=== PATIENT | male | born 1950 | race Caucasian/White ===

== ENCOUNTER 2016-11-26 14:32 | Emergency (ER) | payer MEDICARE, OTHER ==
[~2016-11-26] VITALS: Ht 175.3 cm; Wt 92.0 kg
[2016-11-26 14:33] VITALS: BP 181/105; PULSE 79; RESP 18; TEMP 98.5; O2SAT 100
--- NOTE | 2016-11-26 15:43 | PD ---
HPI Chief Complaint: Edema Time Seen by Provider: 15:43 Travel History International Travel<30 days: No Contact w/Intl Traveler<30days: No Traveled to known affect area: No History of Present Illness HPI 65-year-old male with history of hypertension and one isolated episode of A. fib , presents to emergency department for evaluation bilateral lower extremity swelling worsening over the last 3 weeks. Patient states that 2 weeks ago when he began he went to [facility] and was told his kidneys were not functioning well and he needed follow-up with a primary care provider. He states the swelling in his lower extremities has only worsened since then. He has developed shortness of breath with prolonged ambulation. States he is unable to sleep flat. Denies any recent illnesses, fever, chills. No chest pain or tightness. He has no other symptoms to report at this time. [facility] Past Medical History Cardiovascular Problems: Yes Social History Tobacco Use: Yes Review of Systems Except as stated in HPI: all other systems reviewed are Neg Physical Exam Narrative GENERAL: Well-nourished male patient, ambulatory and in no acute distress SKIN: Warm and dry. HEAD: Atraumatic. Normocephalic. EYES: Pupils equal and round. No scleral icterus. No injection or drainage. ENT: No nasal bleeding or discharge. Mucous membranes pink and moist. NECK: Trachea midline. No JVD. CARDIOVASCULAR: Regular rate and rhythm. RESPIRATORY: No accessory muscle use. Diminished to auscultation. Breath sounds equal bilaterally. GASTROINTESTINAL: Abdomen soft, non-tender, nondistended. Hepatic and splenic margins not palpable. MUSCULOSKELETAL: No obvious deformities. No clubbing. No cyanosis. 2+ bilateral lower extremity edema. Distal pulses are palpable. NEUROLOGICAL: Awake and alert. No obvious cranial nerve deficits. Motor grossly within normal limits. Normal speech. PSYCHIATRIC: Appropriate mood and affect; insight and judgment normal. Data Data Last Documented VS Vital Signs Date Time Temp Pulse Resp B/P Pulse Ox O2 Delivery O2 Flow Rate FiO2 11/26/16 14:33 98.5 79 18 181/105 100 Room Air Orders Electrocardiogram (11/26/16 15:38) B-Type Natriuretic Peptide (11/26/16 15:38) Ckmb (Isoenzyme) Profile (11/26/16 15:38) Complete Blood Count With Diff (11/26/16 15:38) Comprehensive Metabolic Panel (11/26/16 15:38) Magnesium (Mg) (11/26/16 15:38) Prothrombin Time / Inr (Pt) (11/26/16 15:38) Act Partial Throm Time (Ptt) (11/26/16 15:38) Troponin I (11/26/16 15:38) Chest, Single Ap (11/26/16 15:38) Labs Laboratory Tests Test 11/26/16 15:45 White Blood Count 4.0 TH/MM3 Red Blood Count 3.00 MIL/MM3 Hemoglobin 8.8 GM/DL Hematocrit 25.7 % Mean Corpuscular Volume 85.8 FL Mean Corpuscular Hemoglobin 29.4 PG Mean Corpuscular Hemoglobin 34.2 % Concent Red Cell Distribution Width 14.5 % Platelet Count 301 TH/MM3 Mean Platelet Volume 7.1 FL Neutrophils (%) (Auto) 60.8 % Lymphocytes (%) (Auto) 24.8 % Monocytes (%) (Auto) 10.7 % Eosinophils (%) (Auto) 2.6 % Basophils (%) (Auto) 1.1 % Neutrophils # (Auto) 2.4 TH/MM3 Lymphocytes # (Auto) 1.0 TH/MM3 Monocytes # (Auto) 0.4 TH/MM3 Eosinophils # (Auto) 0.1 TH/MM3 Basophils # (Auto) 0.0 TH/MM3 CBC Comment AUTO DIFF Differential Comment AUTO DIFF CONFIRMED Prothrombin Time 11.2 SEC Prothromb Time International 1.0 RATIO Ratio Activated Partial 24.5 SEC Thromboplast Time Sodium Level 138 MEQ/L Potassium Level 4.3 MEQ/L Chloride Level 104 MEQ/L Carbon Dioxide Level 24.0 MEQ/L Anion Gap 10 MEQ/L Blood Urea Nitrogen 16 MG/DL Creatinine 1.61 MG/DL Estimat Glomerular Filtration 44 ML/MIN Rate Random Glucose 80 MG/DL Calcium Level 8.4 MG/DL Magnesium Level 1.5 MG/DL Total Bilirubin 0.6 MG/DL Aspartate Amino Transf 10 U/L (AST/SGOT) Alanine Aminotransferase 11 U/L (ALT/SGPT) Alkaline Phosphatase 93 U/L Total Creatine Kinase 52 U/L Troponin I LESS THAN 0.02 NG/ML B-Type Natriuretic Peptide 427 PG/ML Total Protein 6.6 GM/DL Albumin 3.2 GM/DL MDM Medical Decision Making Medical Screen Exam Complete: Yes Emergency Medical Condition: Yes Medical Record Reviewed: Yes Differential Diagnosis CHF versus dependent edema versus PVD versus DVT Narrative Course 65-year-old male presents to emergency department for evaluation. Workup was initiated in triage. Once a medical bed because available, patient will be transferred and care assumed by that provider. 1825 patient is not in the waiting room when a medical bed available,. Multiple intensive been made to locate the patient. He was aware prior to being setback in the waiting area but this was the initiation of his workup and it would not be complete. If he chose to leave he understood that this would be AGAINST MEDICAL ADVICE due to an incomplete workup at this time. Diagnosis Primary Impression: Lower extremity edema Qualified Code: R60.0 - Bilateral edema of lower extremity Additional Impressions: Shortness of breath Left against medical advice Disposition: 07 AGAINST MEDICAL ADVICE Condition: Stable rBitany Pham Nov 26, 2016 15:43
[2016-11-26 16:00] LABS: AUTOMATED NEUTROPHIL # 2.4 TH/MM3 (1.8-7.7); BASOPHIL % 1.1 % (0.0-2.0); EOSINOPHIL # 0.1 TH/MM3 (0-0.4); EOSINOPHIL % 2.6 % (0.0-4.0); HEMATOCRIT 25.7 % (39.0-51.0); LYMPH % 24.8 % (9.0-44.0); MEAN CELL VOLUME 85.8 FL (80.0-100.0); MEAN CORPUSCULAR HEMOGLOBIN 29.4 PG (27.0-34.0); MEAN CORPUSCULAR HGB CONC 34.2 % (32.0-36.0); MONO % 10.7 % (0.0-8.0); NEUT % 60.8 % (16.0-70.0); PLATELET COUNT 301 TH/MM3 (150-450); RED CELL DISTRIBUTION WIDTH 14.5 % (11.6-17.2)
[2016-11-26 16:05] LABS: HEMO FLAGS AUTO DIFF
[2016-11-26 16:07] LABS: APTT (PATIENT) 24.5 SEC (24.3-30.1); PROTHROMBIN TIME - PATIENT 11.2 SEC (9.8-11.6)
--- NOTE | 2016-11-26 16:18 | RADRPT ---
EXAM DATE/TIME: 11/26/2016 16:00 [facility] COMPARISON: No previous studies available for comparison. INDICATIONS : Short of breath, lower extremity edema. MEDICAL HISTORY : None. SURGICAL HISTORY : None. ENCOUNTER: Initial ACUITY: 3 days PAIN SCORE: 0/10 LOCATION: chest FINDINGS: A single view of the chest demonstrates the lungs to be symmetrically aerated without evidence of mas s, infiltrate or effusion. The cardiomediastinal contours are unremarkable. Osseous structures are intact. CONCLUSION: No acute disease. Daron Yu MD FACR on November 26, 2016 at 16:16 Board Certified Radiologist. This report was verified electronically.
[2016-11-26 16:25] LABS: ANION GAP 10 MEQ/L (5-15); BLOOD UREA NITROGEN 16 MG/DL (7-18); CHLORIDE 104 MEQ/L (98-107); GLOMERULAR FILTRATION RATE 44 ML/MIN (>89); MAGNESIUM 1.5 MG/DL (1.5-2.5); POTASSIUM 4.3 MEQ/L (3.5-5.1); SODIUM (NA) 138 MEQ/L (136-145)
[2016-11-26 16:38] LABS: ALKALINE PHOSPHATASE 93 U/L (45-117); ALT (GPT) 11 U/L (12-78); AST (GOT) 10 U/L (15-37); TOTAL BILIRUBIN ADULT 0.6 MG/DL (0.2-1.0)
[2016-11-26 16:49] LABS: CREATINE KINASE 52 U/L (39-308)
[2016-11-26 17:17] LABS: SCAN/DIFF AUTO DIFF CONFIRMED
--- NOTE | 2016-11-27 23:58 | EKG ---
Date Performed: 11/26/2016 Time Performed: 15:52:21 PTAGE: 65 years EKG: Sinus rhythm NORMAL ECG NO PREVIOUS TRACING DOCTOR: Austin Smith Interpretating Date/Time 11/27/2016 23:57:09
== END 2016-11-26 18:25 | disposition left against medical advice (07) ==
LOC: NETRI 14:32
DX: R60.0 Localized edema (principal); R06.02 Shortness of breath
CPT/HCPCS: 71010; 80053; 82550; 83735; 83880; 84484; 85025; 85610; 85730; 93005

== ENCOUNTER 2016-12-24 11:32 | Emergency (ER) | payer MEDICARE, OTHER ==
[~2016-12-24] VITALS: Ht 175.3 cm; Wt 93.0 kg
[2016-12-24 11:33] VITALS: BP 154/83; PULSE 91; RESP 20; TEMP 98.9; O2SAT 100
--- NOTE | 2016-12-24 11:47 | PD ---
HPI Chief Complaint: LE EDEMA Time Seen by Provider: 11:47 Travel History International Travel<30 days: No Contact w/Intl Traveler<30days: No Traveled to known affect area: No History of Present Illness HPI 66-year-old male with history of hypertension presents to the emergency department for evaluation of persistent bilateral lower extremity edema. Patient was seen and evaluated on November 26 for this. He has not followed up with a primary care provider due to not having one. Patient states he has been elevating his lower extremities with no improvement of his symptoms. Denies any chest pain or tightness. No difficulty breathing. Patient states that when his lower extremities are like this they are painful, constant, throbbing. Denies any injury. Denies any history of DVT. No other symptoms to report this time. PFSH Past Medical History Cardiovascular Problems: Yes Social History Tobacco Use: Yes Allergies-Medications (Allergen,Severity, Reaction): Coded Allergies: Tramadol (Verified Allergy, Severe, Rash, 12/24/16) Reported Meds & Prescriptions Reported Meds & Active Scripts Active Effer-K (Potassium Bicarbonate-Citric Acid) 10 Meq Tab 1 Tab PO DAILY 5 Days Hydrochlorothiazide 12.5 Mg Tab 12.5 Mg PO BID 5 Days Reported Lisinopril 40 Mg Tab 40 Mg PO HS Review of Systems Except as stated in HPI: all other systems reviewed are Neg Physical Exam Narrative GENERAL: Well-nourished male patient, in no acute distress SKIN: Warm and dry. HEAD: Atraumatic. Normocephalic. EYES: Pupils equal and round. No scleral icterus. No injection or drainage. ENT: No nasal bleeding or discharge. Mucous membranes pink and moist. NECK: Trachea midline. No JVD. CARDIOVASCULAR: Regular rate and rhythm. No murmur appreciated. RESPIRATORY: No accessory muscle use. Clear to auscultation. Breath sounds equal bilaterally. GASTROINTESTINAL: Abdomen soft, non-tender, nondistended. Hepatic and splenic margins not palpable. MUSCULOSKELETAL: No obvious deformities. No clubbing. No cyanosis. 2+ bilateral lower extremity edema distal to the knees. Distal pulses are palpable. Cap refill is within normal limits. NEUROLOGICAL: Awake and alert. No obvious cranial nerve deficits. Motor grossly within normal limits. Normal speech. PSYCHIATRIC: Appropriate mood and affect; insight and judgment normal. Data Data Last Documented VS Vital Signs Date Time Temp Pulse Resp B/P Pulse Ox O2 Delivery O2 Flow Rate FiO2 12/24/16 12:20 98 Room Air 12/24/16 12:20 16 12/24/16 11:33 98.9 91 154/83 Orders Complete Blood Count With Diff (12/24/16 11:53) Comprehensive Metabolic Panel (12/24/16 11:53) B-Type Natriuretic Peptide (12/24/16 11:53) Act Partial Throm Time (Ptt) (12/24/16 11:53) Prothrombin Time / Inr (Pt) (12/24/16 11:53) Urinalysis - C+S If Indicated (12/24/16 11:53) Iv Access Insert/Monitor (12/24/16 11:53) Ecg Monitoring (12/24/16 11:53) Oximetry (12/24/16 11:53) Oxygen Administration (12/24/16 11:53) Chest, Single Ap (12/24/16 11:53) Sodium Chloride 0.9% Flush (Ns Flush) (12/24/16 12:00) Us Leg Venous Doppler Bilat (12/24/16 ) Thyroid Stimulating Hormone (12/24/16 11:54) Labs Laboratory Tests Test 12/24/16 12/24/16 12:17 13:41 White Blood Count 5.3 TH/MM3 Red Blood Count 3.14 MIL/MM3 Hemoglobin 9.0 GM/DL Hematocrit 26.7 % Mean Corpuscular Volume 85.0 FL Mean Corpuscular Hemoglobin 28.8 PG Mean Corpuscular Hemoglobin 33.9 % Concent Red Cell Distribution Width 15.3 % Platelet Count 265 TH/MM3 Mean Platelet Volume 7.7 FL Neutrophils (%) (Auto) 67.1 % Lymphocytes (%) (Auto) 19.7 % Monocytes (%) (Auto) 10.9 % Eosinophils (%) (Auto) 1.4 % Basophils (%) (Auto) 0.9 % Neutrophils # (Auto) 3.5 TH/MM3 Lymphocytes # (Auto) 1.0 TH/MM3 Monocytes # (Auto) 0.6 TH/MM3 Eosinophils # (Auto) 0.1 TH/MM3 Basophils # (Auto) 0.0 TH/MM3 CBC Comment DIFF FINAL Differential Comment Prothrombin Time 11.0 SEC Prothromb Time International 1.0 RATIO Ratio Activated Partial 26.2 SEC Thromboplast Time Sodium Level 132 MEQ/L Potassium Level 3.9 MEQ/L Chloride Level 99 MEQ/L Carbon Dioxide Level 24.6 MEQ/L Anion Gap 8 MEQ/L Blood Urea Nitrogen 12 MG/DL Creatinine 1.59 MG/DL Estimat Glomerular Filtration 44 ML/MIN Rate Random Glucose 75 MG/DL Calcium Level 8.7 MG/DL Total Bilirubin 0.5 MG/DL Aspartate Amino Transf 7 U/L (AST/SGOT) Alanine Aminotransferase 10 U/L (ALT/SGPT) Alkaline Phosphatase 77 U/L B-Type Natriuretic Peptide 108 PG/ML Total Protein 6.4 GM/DL Albumin 3.2 GM/DL Thyroid Stimulating Hormone 1.170 uIU/ML 3rd Gen Urine Color YELLOW Urine Turbidity CLEAR Urine pH 5.0 Urine Specific [place] 1.016 Urine Protein 30 mg/dL Urine Glucose (UA) NEG mg/dL Urine Ketones NEG mg/dL Urine Occult Blood MOD Urine Nitrite NEG Urine Bilirubin NEG Urine Urobilinogen LESS THAN 2.0 MG/DL Urine Leukocyte Esterase SMALL Urine RBC 6 /hpf Urine WBC 6 /hpf Urine Hyaline Casts 9 /lpf Urine Mucus FEW /lpf Microscopic Urinalysis Comment CULT NOT INDICATED MDM Medical Decision Making Medical Screen Exam Complete: Yes Emergency Medical Condition: Yes Medical Record Reviewed: Yes Differential Diagnosis Dependent edema versus CHF versus DVT versus electrolyte abnormality versus renal dysfunction Narrative Course 66-year-old male presents to emergency department for evaluation of lower extremity edema. Patient appears without distress. He does have bilateral lower extremity edema. Lung sounds are clear. CBC and CMP are without acute concern in consistent when compared to previous lab work. BNP is 108, improved from previous. TSH is 1.170. Urinalysis is with 30 protein, moderate occult blood, small leukocyte esterase, 6 RBC, 6 WBC, few mucus. This is discussed with the patient and he is encouraged to have repeat UA outpatient done with a primary care provider. I have discussed in depth the importance of establishment of care with primary care provider. I have discussed the patient and findings with my attending physician Dr. Loaiza who recommends diuretics for 5 days. Patient is prescribed this. He agrees to return immediately with any acute worsening of symptoms. Diagnosis Primary Impression: Lower extremity edema Qualified Code: R60.0 - Bilateral edema of lower extremity Referrals: Primary Care Physician Patient Instructions: General Instructions, Leg Edema (ED) Additional Instructions: It is important that you establish care with a primary care provider Elevate your lower extremities to reduce swelling Reduce sodium/salt intake in your diet Return immediately to the emergency department with any acute worsening of symptoms Med/Other Pt SpecificInfo: Prescription(s) given Scripts Potassium Bicarbonate-Citric Acid (Effer-K)10 Meq Tab1 Tab PO DAILY 5 Days Prov:Britany Pham 12/24/16 Hydrochlorothiazide 12.5 Mg Tab12.5 Mg PO BID 5 Days Ref 0 Prov:Britany Pham 12/24/16 Disposition: 01 DISCHARGE HOME Condition: Stable Britany Pham Dec 24, 2016 11:47
[2016-12-24] MEDS ORDERED: LISI40TA PO (11:49)
[2016-12-24] MEDS ORDERED: SODIUM CHLORIDE 0.9% FLUSH 10 ML FLUSH IVF PRN (12:00)
[2016-12-24 12:20] VITALS: RESP 16; O2SAT 98
[2016-12-24 12:30] LABS: AUTOMATED NEUTROPHIL # 3.5 TH/MM3 (1.8-7.7); BASOPHIL % 0.9 % (0.0-2.0); EOSINOPHIL # 0.1 TH/MM3 (0-0.4); EOSINOPHIL % 1.4 % (0.0-4.0); HEMATOCRIT 26.7 % (39.0-51.0); HEMO FLAGS DIFF FINAL; LYMPH % 19.7 % (9.0-44.0); MEAN CORPUSCULAR HEMOGLOBIN 28.8 PG (27.0-34.0); MEAN CORPUSCULAR HGB CONC 33.9 % (32.0-36.0); MONO % 10.9 % (0.0-8.0); NEUT % 67.1 % (16.0-70.0); PLATELET COUNT 265 TH/MM3 (150-450); RED BLOOD COUNT 3.14 MIL/MM3 (4.50-5.90); RED CELL DISTRIBUTION WIDTH 15.3 % (11.6-17.2); WHITE BLOOD COUNT 5.3 TH/MM3 (4.0-11.0)
[2016-12-24 12:37] LABS: APTT (PATIENT) 26.2 SEC (24.3-30.1)
[2016-12-24 13:16] LABS: ALT (GPT) 10 U/L (12-78); ANION GAP 8 MEQ/L (5-15); AST (GOT) 7 U/L (15-37); BICARBONATE 24.6 MEQ/L (21.0-32.0); BLOOD UREA NITROGEN 12 MG/DL (7-18); CHLORIDE 99 MEQ/L (98-107); GLOMERULAR FILTRATION RATE 44 ML/MIN (>89); POTASSIUM 3.9 MEQ/L (3.5-5.1); SODIUM (NA) 132 MEQ/L (136-145)
[2016-12-24 13:18] LABS: ALKALINE PHOSPHATASE 77 U/L (45-117); TOTAL BILIRUBIN ADULT 0.5 MG/DL (0.2-1.0)
--- NOTE | 2016-12-24 13:26 | RADRPT ---
EXAM DATE/TIME: 12/24/2016 12:10 [facility] COMPARISON: CHEST SINGLE AP, November 26, 2016, 16:00. INDICATIONS : Short of breath, with congstion, and weakness. MEDICAL HISTORY : Congestive heart failure. SURGICAL HISTORY : None. ENCOUNTER: Initial ACUITY: 1 day PAIN SCORE: 0/10 LOCATION: Bilateral chest FINDINGS: A single view of the chest demonstrates the lungs to be symmetrically aerated without evidence of mas s, infiltrate or effusion. The cardiomediastinal contours are unremarkable. Osseous structures are intact with anterior fixation of the lower cervical spine. Possible osteochondromata associated with the right shoulder joint. CONCLUSION: 1. No acute cardiopulmonary process to explain current clinical symptoms. 2. Possible osteochondromata or spurring associated with the right shoulder. Rolly Frederick MD on December 24, 2016 at 13:23 Board Certified Radiologist. This report was verified electronically.
--- NOTE | 2016-12-24 13:56 | RADRPT ---
EXAM DATE/TIME: 12/24/2016 12:59 [facility] COMPARISON: No previous studies available for comparison. INDICATIONS : Bilateral leg swelling. Shortness of breath with ambulation. MEDICAL HISTORY : Hypertension. SURGICAL HISTORY : Tonsillectomy.Appendectomy. Left wrist surgery. Spinal fusion. Bilateral foot surgery. ENCOUNTER: Initial ACUITY: 3 weeks PAIN SCORE: 10/10 LOCATION: Bilateral leg. TECHNIQUE: Venous ultrasound of the left and right leg was performed from the inguinal ligament to the proximal calf. Real-time, color Doppler and spectral tracing, compression and augmentation techniques were us ed. FINDINGS: RIGHT LEG: There is normal compressibility of the deep venous system from the inguinal region to the proximal ca lf. No echogenic clot is seen in the lumen of the common femoral, femoral, popliteal, and posterior tibial veins. There is a normal response of the venous system to proximal and distal augmentation an d respiration. LEFT LEG: There is normal compressibility of the deep venous system from the inguinal region to the proximal ca lf. No echogenic clot is seen in the lumen of the common femoral, femoral, popliteal, and posterior tibial veins. There is a normal response of the venous system to proximal and distal augmentation an d respiration. CONCLUSION: Normal examination. Mio Wilson Jr., MD on December 24, 2016 at 13:53 Board Certified Radiologist. This report was verified electronically.
[2016-12-24 14:05] LABS: BLOOD, URINE MOD (NEG); COMMENT (UR) CULT NOT INDICATED; CULTURE IF INDICATED CULT NOT INDICATED; GLUCOSE,URINE NEG (NEG); HYALINE CAST, URINE 9 /lpf (RARE); KETONE, URINE NEG (NEG); MUCUS URINE FEW /lpf (OCC); NITRITE,URINE NEG (NEG); URINE COLOR YELLOW (YELLW/STRAW)
[2016-12-24] MEDS ORDERED: EFFE10TA PO (14:06)
[2016-12-24] MEDS ORDERED: HYDR12.56 PO (14:06)
[2016-12-24 15:00] VITALS: BP 163/105; PULSE 76; RESP 20; O2SAT 100
== END 2016-12-24 15:25 | disposition home or self-care (01) ==
LOC: NEPE 11:32
DX: R60.0 Localized edema (principal); I10 Essential (primary) hypertension; Z72.0 Tobacco use; Z86.79 Personal history of other diseases of the circulatory system
CPT/HCPCS: 71010; 80053; 81001; 83880; 84443; 85025; 85610; 85730; 93970

== ENCOUNTER 2018-03-22 18:56 | Observation (INO) | payer MEDICARE, OTHER ==
[~2018-03-22] VITALS: Ht 177.8 cm; Wt 78.0 kg
[~2018-03-22 18:56] MED LIST: EFFE10TA PO; HYDR12.56 PO; LISI40TA PO
[2018-03-22 19:24] VITALS: BP 187/102; PULSE 128; RESP 18; TEMP 99; O2SAT 99
[2018-03-22 21:58] VITALS: BP 206/113; PULSE 98; RESP 18; O2SAT 100
[2018-03-22] MEDS ORDERED: COLC0.6T PO (21:58)
[2018-03-22] MEDS ORDERED: METO25TA3 PO (21:58)
[2018-03-22] MEDS ORDERED: AMLO5TAB2 PO (21:58)
--- NOTE | 2018-03-22 22:13 | PD ---
HPI Chief Complaint: Dizziness Time Seen by Provider: 21:59 Travel History International Travel<30 days: No Contact w/Intl Traveler<30days: No Traveled to known affect area: No History of Present Illness HPI 67yo M with PMH of HTN was sent by Dr. Chaudhry after prostate biopsy today. Pt had the procedure at [facility] at 11am and has been having nausea and vomiting after. Pt has been observed there for hours but symptoms still persist so was sent to the ED. Pt said he feels dizzy/lightheaded and his blood pressure has been very elevated. He is vomiting every 15 minutes. Pt has gross hematuria but likely expected after the biopsy. Denies any fever, chest pain, sob, abdominal pain, focal weakness or numbness. PFSH Past Medical History Cardiovascular Problems: Yes Hypertension: Yes Immunizations Current: Yes Tetanus Vaccination: Unknown Influenza Vaccination: Yes Past Surgical History Abdominal Surgery: Yes (HERNIA REPAIR) Appendectomy: Yes Tonsillectomy: Yes Social History Alcohol Use: Yes (OCC) Tobacco Use: Yes Substance Use: No Allergies-Medications (Allergen,Severity, Reaction): Coded Allergies: ciprofloxacin (Verified Allergy, Severe, Anaphylaxis, 03/22/18) fentanyl (Verified Allergy, Severe, Anaphylaxis, 03/22/18) tramadol (Unverified Allergy, Severe, Rash, 03/22/18) Reported Meds & Prescriptions Reported Meds & Active Scripts Active Reported Colcrys (Colchicine) 0.6 Mg Tab 0.6 Mg PO DAILY Metoprolol Tartrate 25 Mg Tab 25 Mg PO DAILY Amlodipine (Amlodipine Besylate) 5 Mg Tab 5 Mg PO DAILY Review of Systems Except as stated in HPI: all other systems reviewed are Neg Physical Exam Narrative GENERAL: 67yo M in mild distress. SKIN: Focused skin assessment warm/dry. HEAD: Atraumatic. Normocephalic. EYES: Pupils equal and round. No scleral icterus. No injection or drainage. ENT: No nasal bleeding or discharge. Mucous membranes pink and moist. NECK: Trachea midline. No JVD. CARDIOVASCULAR: Regular rate and rhythm. No murmur appreciated. RESPIRATORY: No accessory muscle use. Clear to auscultation. Breath sounds equal bilaterally. GASTROINTESTINAL: Abdomen soft, non-tender, nondistended. No rebound tenderness or guarding. : Mild ttp mid pelvis above the penis. +Gross hematuria, coppola in place with some blood around the coppola. No testicular ttp. MUSCULOSKELETAL: No obvious deformities. No clubbing. No cyanosis. No edema. NEUROLOGICAL: Awake and alert. No obvious cranial nerve deficits. Motor grossly within normal limits. Normal speech. PSYCHIATRIC: Appropriate mood and affect; insight and judgment normal. Data Data Last Documented VS Vital Signs Date Time Temp Pulse Resp B/P (MAP) Pulse Ox O2 Delivery O2 Flow Rate FiO2 03/22/18 22:55 162/94 (116) 03/22/18 21:58 98 18 100 Room Air 03/22/18 19:24 99.0 Orders Orders Electrocardiogram (03/22/18 ) Complete Blood Count With Diff (03/22/18 22:11) Basic Metabolic Panel (Bmp) (03/22/18 22:11) Magnesium (Mg) (03/22/18 22:11) Urinalysis - C+S If Indicated (03/22/18 22:11) Ondansetron Odt (Zofran Odt) (03/22/18 22:15) Sodium Chlor 0.9% 1000 Ml Inj (Ns 1000 M (03/22/18 22:30) Metoprolol Tartrate Inj (Lopressor Inj) (03/22/18 22:20) Magnesium Sulfate 1 Gm Premix (Magnesium (03/22/18 23:45) Morphine Inj (Morphine Inj) (03/22/18 23:45) Metoclopramide Inj (Reglan Inj) (03/22/18 23:45) Morphine Inj (Morphine Inj) (03/23/18 00:00) Urine Culture (03/22/18 23:02) Admit Order (Ed Use Only) (03/23/18 00:10) Labs Laboratory Tests Test 03/22/18 22:31 03/22/18 23:02 White Blood Count 8.6 TH/MM3 Red Blood Count 3.49 MIL/MM3 Hemoglobin 10.2 GM/DL Hematocrit 30.7 % Mean Corpuscular Volume 88.0 FL Mean Corpuscular Hemoglobin 29.3 PG Mean Corpuscular Hemoglobin Concent 33.2 % Red Cell Distribution Width 13.9 % Platelet Count 230 TH/MM3 Mean Platelet Volume 7.0 FL Neutrophils (%) (Auto) 88.9 % Lymphocytes (%) (Auto) 2.0 % Monocytes (%) (Auto) 9.0 % Eosinophils (%) (Auto) 0.0 % Basophils (%) (Auto) 0.1 % Neutrophils # (Auto) 7.7 TH/MM3 Lymphocytes # (Auto) 0.2 TH/MM3 Monocytes # (Auto) 0.8 TH/MM3 Eosinophils # (Auto) 0.0 TH/MM3 Basophils # (Auto) 0.0 TH/MM3 CBC Comment DIFF FINAL Differential Comment Blood Urea Nitrogen 25 MG/DL Creatinine 1.82 MG/DL Random Glucose 198 MG/DL Calcium Level 8.7 MG/DL Magnesium Level 1.3 MG/DL Sodium Level 132 MEQ/L Potassium Level 5.3 MEQ/L Chloride Level 96 MEQ/L Carbon Dioxide Level 17.5 MEQ/L Anion Gap 19 MEQ/L Estimat Glomerular Filtration Rate 38 ML/MIN Urine Color RED Urine Turbidity CLOUDY Urine pH 5.0 Urine Specific [place] 1.017 Urine Protein >=500 mg/dL Urine Glucose (UA) 50 mg/dL Urine Ketones TRACE mg/dL Urine Occult Blood LARGE Urine Nitrite NEG Urine Bilirubin NEG Urine Urobilinogen LESS THAN 2 mg/dL Urine Leukocyte Esterase NEG Urine RBC /hpf Urine WBC /hpf Urine Bacteria RARE /hpf Microscopic Urinalysis Comment CULTURE INDICATED MDM Medical Decision Making Medical Screen Exam Complete: Yes Emergency Medical Condition: Yes Interpretation(s) EKG: NSR 94bpm. Normal axis. No ST segment elevation or depression. Differential Diagnosis Post op nausea vs. dehydration vs. electrolyte abnormality Narrative Course 67yo M with enlarged prostate, HTN was sent here by Dr. Chaudhry for intractable vomiting and nausea after procedure today. I spoke with Dr. Chaudhry and he said pt has very large prostate and they did cystoscopy and biopsy of prostate today. Said everything went well but pt was having nausea and vomiting after. Said he was given reglan and zofran and they tried to discharge him but he vomited again on his way to the car and they brought him back. Pt is feeling shaky, dizzy and still nauseous. Pt was given zofran and NS IVF. Labs reviewed , no leukocytosis. H/H 10.2/30.7 which is baseline. CO2 low at 17.5. K borderline elevated at 5.3. BUN/creatinine elevated at 25/1.82 which is more elevated than baseline of 12/1.59 in 2017. Magnesium is low at 1.3, replaced. BP was initially 206/113 but repeat BP was 162/94 prior to any medication so it was not given. Pt initially tachycardic at 128bpm. BP improved after NS IVF. Pt does not have any abdominal pain but there is some pelvic pain above his penis. No edema or erythema. Pt just had cystoscopy and likely pain from the procedure. Pt given morphine for pain. Pt reevaluated at bedside and is still nauseous. Pt given reglan. Will observe pt overnight. Discussed with Dr. Bearden and accepted to his service. Diagnosis Primary Impression: Intractable nausea and vomiting Qualified Codes: R11.2 - Nausea with vomiting, unspecified Additional Impression: Dehydration Admitting Information Admitting Physician Requests: Observation Nicolle Pfeiffer DO Mar 22, 2018 22:13
[2018-03-22] MEDS ORDERED: ONDANSETRON ODT 4 MG TAB PO ONE (22:15)
[2018-03-22] MEDS ORDERED: METOPROLOL TARTRATE 5 MG/5 ML VIAL IV PUSH STA (22:20)
[2018-03-22] MEDS ORDERED: SODIUM CHLOR 0.9% 1000 ML INJ 1,000 ML IV ONE (22:30)
[2018-03-22 22:41] LABS: AUTOMATED NEUTROPHIL # 7.7 TH/MM3 (1.8-7.7); BASOPHIL % 0.1 % (0.0-2.0); HEMATOCRIT 30.7 % (39.0-51.0); HEMOGLOBIN 10.2 GM/DL (13.0-17.0); LYMPHOCYTE # 0.2 TH/MM3 (1.0-4.8); MEAN CORPUSCULAR HEMOGLOBIN 29.3 PG (27.0-34.0); MEAN CORPUSCULAR HGB CONC 33.2 % (32.0-36.0); MONOCYTE # 0.8 TH/MM3 (0-0.9); NEUT % 88.9 % (16.0-70.0); PLATELET COUNT 230 TH/MM3 (150-450); RED BLOOD COUNT 3.49 MIL/MM3 (4.50-5.90); RED CELL DISTRIBUTION WIDTH 13.9 % (11.6-17.2); WHITE BLOOD COUNT 8.6 TH/MM3 (4.0-11.0)
[2018-03-22 22:55] VITALS: BP 162/94
[2018-03-22 23:03] LABS: BICARBONATE 17.5 MEQ/L (21.0-32.0); CALCIUM 8.7 MG/DL (8.5-10.1); CREATININE 1.82 MG/DL (0.60-1.30); MAGNESIUM 1.3 MG/DL (1.5-2.5)
[2018-03-22] MEDS ORDERED: METOCLOPRAMIDE INJ 10 MG in SODIUM CHLORIDE 0.9% INJ 50 ML IV ONE (23:45)
[2018-03-22] MEDS ORDERED: MORPHINE SULFATE 2 MG/ML SYRINGE IV PUSH ONE (23:45)
[2018-03-22] MEDS ORDERED: MAGNESIUM SULFATE 1 GM PREMIX 100 ML IV ONE (23:45)
[2018-03-22 23:50] LABS: BACTERIA, URINE RARE /hpf; BILIRUBIN, URINE NEG (NEG); BLOOD, URINE LARGE (NEG); GLUCOSE,URINE 50 mg/dL (NEG); KETONE, URINE TRACE mg/dL (NEG); NITRITE,URINE NEG (NEG); URINE LEUKOCYTE ESTERASE NEG (NEG)
[2018-03-22 23:52] LABS: URINE COLOR RED (YELLW/STRAW)
[2018-03-23] MEDS ORDERED: MORPHINE SULFATE 4 MG/ML INJ IV PUSH ONE
[2018-03-23] MEDS ORDERED: SODIUM CHLOR 0.9% 1000 ML INJ 1,000 ML IV SCH (01:39)
[2018-03-23] MEDS ORDERED: ONDANSETRON ODT 4 MG TAB PO PRN (01:45)
[2018-03-23] MEDS ORDERED: LACTULOSE SYRUP 20 GM/30 ML CUP PO PRN (01:45)
[2018-03-23] MEDS ORDERED: MAGNESIUM HYDROXIDE SUSP 30 ML CUP PO PRN (01:45)
[2018-03-23] MEDS ORDERED: NALOXONE HCL 0.4 MG/ML AMP IV PUSH PRN (01:45)
[2018-03-23] MEDS ORDERED: ACETAMINOPHEN 325 MG TAB PO PRN (01:45)
[2018-03-23] MEDS ORDERED: SENNOSIDES 8.6 MG TAB PO PRN (01:45)
[2018-03-23] MEDS ORDERED: SODIUM CHLORIDE 0.9% FLUSH 10 ML FLUSH IV FLUSH PRN (01:45)
[2018-03-23] MEDS ORDERED: BISACODYL 10 MG SUPP RECTAL PRN (01:45)
[2018-03-23] MEDS ORDERED: PROCHLORPERAZINE INJ 10 MG/2 ML VIAL IV PUSH PRN (01:45)
[2018-03-23 03:06] VITALS: BP 172/93; PULSE 84; RESP 16; TEMP 99.1; O2SAT 99
[2018-03-23 08:00] VITALS: BP 156/94; PULSE 76; RESP 16; TEMP 98.4; O2SAT 97
[2018-03-23] MEDS ORDERED: amLODIPine BESYLATE 5 MG TAB PO SCH (09:00)
[2018-03-23] MEDS ORDERED: DOCUSATE SODIUM 50 MG/SENNA 8.6 MG TAB PO SCH (09:00)
[2018-03-23] MEDS ORDERED: SODIUM CHLORIDE 0.9% FLUSH 10 ML FLUSH IV FLUSH SCH (09:00)
[2018-03-23] MEDS ORDERED: METOPROLOL TARTRATE 25 MG TAB PO SCH (09:00)
--- NOTE | 2018-03-23 09:39 | HHI.HP ---
HPI Service [facility] Primary Care Physician Unknown Admission Diagnosis Dehydration, acute on chronic kidney injury, intractable nausea Diagnoses: Chief Complaint: intractable nausea/vomtiing Travel History International Travel<30 Days: No Contact w/Intl Traveler <30 Da: No Traveled to Known Affected Are: No History of Present Illness 67-year-old male with history of hypertension, CKD, gout, arthritis, enlarged prostate, presents with intractable nausea and vomiting. Patient reports he has been undergoing a workup for elevated PSA 365, enlarged prostate, and hematuria. Yesterday he went for cystoscopy with biopsy by Dr. Chaudhry. After the procedure he began having intractable nausea and vomiting, therefore Dr. Chaudhry referred him to the emergency department. Patient denies any abdominal pain other than feeling sore in the suprapubic area post procedure. Denies any diarrhea. Denies any fevers or chills. Patient reports continued hematuria in his Miller catheter, expected after biopsy. The patient is now seen the next day in the observation unit. The patient reports his nausea and vomiting resolved around 2 AM overnight. He is looking forward to trying some oral intake. He denies any other medical complaints at this time including no lightheadedness, dizziness, chest pain, palpitations, or shortness of breath. The patient is anxious to be discharged as he is flying out of state tomorrow and has to be at the airport in [place] at 5 AM. Review of Systems Except as stated in HPI: all other systems reviewed are Neg Past Family Social History Past Medical History hypertension CKD gout arthritis enlarged prostate Past Surgical History Cystoscopy with biopsy 03/22/18 Hernia repair Appendectomy Tonsillectomy Left wrist surgery Left hallux surgery Reported Medications Colcrys (Colchicine) 0.6 Mg Tab 0.6 Mg PO DAILY Metoprolol Tartrate 25 Mg Tab 25 Mg PO DAILY Amlodipine (Amlodipine Besylate) 5 Mg Tab 5 Mg PO DAILY Allergies: Coded Allergies: ciprofloxacin (Verified Allergy, Severe, Anaphylaxis, 03/22/18) fentanyl (Verified Allergy, Severe, Anaphylaxis, 03/22/18) tramadol (Unverified Allergy, Severe, Rash, 03/22/18) Active Ordered Medications Current Medications Medications (Trade) Dose Ordered Sig/Kat Route Start Time Stop Time Status Last Admin (Compazine Inj) 10 mg Q4H PRN IV PUSH 03/23/18 01:45 Sodium Chloride 1,000 ml @ 100 mls/hr Q10H IV 03/23/18 01:39 03/23/18 02:18 (NS Flush) 2 ml UNSCH PRN IV FLUSH 03/23/18 01:45 (NS Flush) 2 ml BID IV FLUSH 03/23/18 09:00 (Tylenol) 650 mg Q4H PRN PO 03/23/18 01:45 (Zofran Odt) 4 mg Q6H PRN PO 03/23/18 01:45 (Narcan Inj) 0.4 mg UNSCH PRN IV PUSH 03/23/18 01:45 (Felicita-Colace) 1 tab BID PO 03/23/18 09:00 (Milk Of Magnesia Liq) 30 ml Q12H PRN PO 03/23/18 01:45 (Senokot) 17.2 mg Q12H PRN PO 03/23/18 01:45 (Dulcolax Supp) 10 mg DAILY PRN RECTAL 03/23/18 01:45 (Lactulose Liq) 30 ml DAILY PRN PO 03/23/18 01:45 (Norvasc) 5 mg DAILY PO 03/23/18 09:00 (Lopressor) 25 mg DAILY PO 03/23/18 09:00 Family History Father with lung cancer in his 40s Mother without any significant medical problems, still alive at age 94 Social History Denies any prior tobacco use Occasional alcohol use, 1-2x weekly Denies any illicit drug use Physical Exam Vital Signs Vital Signs Date Time Temp Pulse Resp B/P (MAP) Pulse Ox O2 Delivery O2 Flow Rate FiO2 03/23/18 08:00 98.4 76 16 156/94 (114) 97 03/23/18 03:06 99.1 84 16 172/93 (119) 99 03/23/18 02:43 03/22/18 22:55 162/94 (116) 03/22/18 21:58 98 18 206/113 (144) 100 Room Air 03/22/18 19:24 99.0 128 18 187/102 (130) 99 Physical Exam GENERAL: Well-nourished, well-developed pleasant male patient in NAD. SKIN: Warm and dry. No rash. HEAD: Normocephalic. Atraumatic. EYES: Pupils equal and round. No scleral icterus. No injection or drainage. ENT: No nasal bleeding or discharge. Mucous membranes pink and moist. NECK: Supple. Trachea midline. CARDIOVASCULAR: Regular rate and rhythm. S1, S2 noted. No murmur appreciated. RESPIRATORY: No accessory muscle use. Clear to auscultation. Breath sounds equal bilaterally. GASTROINTESTINAL: Abdomen soft, non-tender, nondistended. Normoactive bowel sounds x4. GENITOURINARY: Miller in place with cranberry to maroon colored urine, no significant clots. MUSCULOSKELETAL: No obvious deformities. Extremities without clubbing, cyanosis , or edema. NEUROLOGICAL: Awake and alert. No obvious cranial nerve deficits. Motor grossly within normal limits. Normal speech. PSYCHIATRIC: Appropriate mood and affect; insight and judgment normal. Laboratory Laboratory Tests Test 03/22/18 22:31 03/22/18 23:02 White Blood Count 8.6 Red Blood Count 3.49 Hemoglobin 10.2 Hematocrit 30.7 Mean Corpuscular Volume 88.0 Mean Corpuscular Hemoglobin 29.3 Mean Corpuscular Hemoglobin Concent 33.2 Red Cell Distribution Width 13.9 Platelet Count 230 Mean Platelet Volume 7.0 Neutrophils (%) (Auto) 88.9 Lymphocytes (%) (Auto) 2.0 Monocytes (%) (Auto) 9.0 Eosinophils (%) (Auto) 0.0 Basophils (%) (Auto) 0.1 Neutrophils # (Auto) 7.7 Lymphocytes # (Auto) 0.2 Monocytes # (Auto) 0.8 Eosinophils # (Auto) 0.0 Basophils # (Auto) 0.0 CBC Comment DIFF FINAL Differential Comment Blood Urea Nitrogen 25 Creatinine 1.82 Random Glucose 198 Calcium Level 8.7 Magnesium Level 1.3 Sodium Level 132 Potassium Level 5.3 Chloride Level 96 Carbon Dioxide Level 17.5 Anion Gap 19 Estimat Glomerular Filtration Rate 38 Urine Color RED Urine Turbidity CLOUDY Urine pH 5.0 Urine Specific [place] 1.017 Urine Protein >=500 Urine Glucose (UA) 50 Urine Ketones TRACE Urine Occult Blood LARGE Urine Nitrite NEG Urine Bilirubin NEG Urine Urobilinogen LESS THAN 2 Urine Leukocyte Esterase NEG Urine RBC Urine WBC Urine Bacteria RARE Microscopic Urinalysis Comment CULTURE INDICATED Date/Time Source Procedure Growth Status 03/22/18 23:02 Urine Clean Catch Urine Culture Pending Received Result Diagram: 03/22/18223003/22/182230 Camille VTE Risk Assessment Camille VTE Risk Assessment: Mod/High Risk (score >= 2) VTE Pharm Contraindication: Active bleeding Caprini Risk Assessment Model Point Value = 1 Point Value = 2 Point Value = 3 Point Value = 5 Age 41-60 Minor surgery BMI > 25 kg/m2 Swollen legs Varicose veins or History of unexplained or recurrent spontaneous Oral contraceptives or hormone replacement Sepsis (< 1 month) Serious lung disease, including pneumonia (< 1 month) Abnormal pulmonary function Acute myocardial infarction Congestive heart failure (< 1 month) History of inflammatory bowel disease Medical patient at bed rest Age 61-74 Arthroscopic surgery Major open surgery (> 45 min) Laparoscopic surgery (> 45 min) Malignancy Confined to bed (> 72 hours) Immobilizing plaster cast Central venous access Age >= 75 History of VTE Family history of VTE Factor V Leiden Prothrombin [id number] Lupus anticoagulant Anticardiolipin antibodies Elevated serum homocysteine Heparin-induced thrombocytopenia Other congenital or acquired thrombophilia Stroke (< 1 month) Elective arthroplasty Hip, pelvis, or leg fracture Acute spinal cord injury (< 1 month) Prophylaxis Regimen Total Risk Factor Score Risk Level Prophylaxis Regimen 0-1 Low Early ambulation 2 Moderate Order ONE of the following: *Sequential Compression Device (SCD) *Heparin 5000 units SQ BID 3-4 Higher Order ONE of the following medications: *Heparin 5000 units SQ TID *Enoxaparin/Lovenox 40 mg SQ daily (WT < 150 kg, CrCl > 30 mL/min) *Enoxaparin/Lovenox 30 mg SQ daily (WT < 150 kg, CrCl > 10-29 mL/min) *Enoxaparin/Lovenox 30 mg SQ BID (WT < 150 kg, CrCl > 30 mL/min) AND/OR *Sequential Compression Device (SCD) 5 or more Highest Order ONE of the following medications: *Heparin 5000 units SQ TID (Preferred with Epidurals) *Enoxaparin/Lovenox 40 mg SQ daily (WT < 150 kg, CrCl > 30 mL/min) *Enoxaparin/Lovenox 30 mg SQ daily (WT < 150 kg, CrCl > 10-29 mL/min) *Enoxaparin/Lovenox 30 mg SQ BID (WT < 150 kg, CrCl > 30 mL/min) AND *Sequential Compression Device (SCD) Assessment and Plan Problem List: (1) Intractable nausea and vomiting ICD Code: R11.2 - Nausea with vomiting, unspecified Status: Acute (2) Dehydration ICD Code: E86.0 - Dehydration Status: Acute Assessment and Plan 67-year-old male with history of hypertension, CKD stage III, gout, arthritis, enlarged prostate, presents with intractable nausea and vomiting. Yesterday he went for cystoscopy with biopsy by Dr. Chaudhry. After the procedure he began having intractable nausea and vomiting, therefore Dr. Chaudhry referred him to the emergency department. Intractable nausea/vomiting: Suspect secondary to anesthesia s/p procedure. -Continue supportive treatment with IVF hydration, Zofran prn -Replace electrolytes -Symptoms much improved, diet advanced LOREN on CKD Stage III: Cr 1.82 upon arrival, previously 1.5 in 2017. Suspect prerenal secondary to dehydration with N/V. -Give IVF hydration -Avoid nephrotoxins -Repeat labs pending Anion Gap Metabolic Acidosis with Hyponatremia/Hyperkalemia/Hypomagnesemia: acute, secondary to dehydration with intractable N/V. Na 132, K 5.3, Chloride 96 , CO2 17, Anion Gap 19, Mag 1.3. -Give IVF hydration with NS -Given IV Mag sulfate -Repeat labs pending Enlarged Prostate, Hematuria: expected s/p cystoscopy with biopsy 03/22 -Hgb stable at 10.2 -Continue Miller catheter for now -Consult patient's urologist Dr. Chaudhry Hypertension: acute on chronic, BP elevated -continue patient's metoprolol and amlodipine -Monitor BP, adjust antihypertensives as needed DVT Prophylaxis: teds/SCDs; avoid chemoprophylaxis with ongoing hematuria Discussed Condition With Patient, java j2ee technical lead Planninhours: Repeat labs show much improvement, Na 134, K 4.4, anion gap resolved , Cr 1.58 (at patient's baseline), and Mag 1.6. Giving IV Mag sulfate replacement. Awaiting urology evaluation. Will plan to discharge if cleared by urology. 1500hours: Patient seen and cleared by urology. Recommended Miller to be removed. Continue oral hydration. Outpatient f/up in 1-2 weeks. Patient will be discharged. Discharge patient to home Condition on discharge: Stable Heart Healthy Diet as tolerated Ad Rhonda activity Rx written: no new meds Follow-up with primary care physician in 2-[address] Chaudhry in 1 week Problem Qualifiers (1) Intractable nausea and vomiting: Qualified Codes: R11.2 - Nausea with vomiting, unspecified Cherrie Oropeza PA-C Mar 23, 2018 9:39 am
[2018-03-23] MEDS ORDERED: ACETAMINOPHEN/HYDROcodone 325 MG/5 MG TAB PO ONE (09:45)
[2018-03-23] MEDS ORDERED: ACETAMINOPHEN/HYDROcodone 325 MG/5 MG TAB PO PRN (10:30)
[2018-03-23 11:32] LABS: AUTOMATED NEUTROPHIL # 3.4 TH/MM3 (1.8-7.7); BASOPHIL % 0.2 % (0.0-2.0); EOSINOPHIL % 0.1 % (0.0-4.0); HEMATOCRIT 26.8 % (39.0-51.0); LYMPH % 11.1 % (9.0-44.0); LYMPHOCYTE # 0.5 TH/MM3 (1.0-4.8); MEAN CELL VOLUME 87.4 FL (80.0-100.0); MEAN CORPUSCULAR HEMOGLOBIN 29.2 PG (27.0-34.0); MEAN CORPUSCULAR HGB CONC 33.4 % (32.0-36.0); MEAN PLATELET VOLUME 7.4 FL (7.0-11.0); MONO % 14.7 % (0.0-8.0); MONOCYTE # 0.7 TH/MM3 (0-0.9); NEUT % 73.9 % (16.0-70.0); PLATELET COUNT 190 TH/MM3 (150-450); RED BLOOD COUNT 3.07 MIL/MM3 (4.50-5.90); RED CELL DISTRIBUTION WIDTH 14.5 % (11.6-17.2); WHITE BLOOD COUNT 4.5 TH/MM3 (4.0-11.0)
[2018-03-23 12:00] VITALS: BP 122/74; PULSE 71; RESP 17; TEMP 98.2; O2SAT 98
[2018-03-23 12:03] LABS: BICARBONATE 23.7 MEQ/L (21.0-32.0); CREATININE 1.58 MG/DL (0.60-1.30); MAGNESIUM 1.6 MG/DL (1.5-2.5)
--- NOTE | 2018-03-23 13:19 | HHI.DCPOC ---
Discharge Care Plan Diagnosis: (1) Hematuria (2) Intractable nausea and vomiting (3) Dehydration Goals to Promote Your Health * To prevent worsening of your condition and complications * To maintain your health at the optimal level Directions to Meet Your Goals Take your medications as prescribed Follow your dietary instruction Follow activity as directed Keep your appointments as scheduled Take your immunizations and boosters as scheduled If your symptoms worsen call your PCP, if no PCP go to Urgent Care Center or Emergency Room Smoking is Dangerous to Your Health. Avoid second hand smoke Call the 24-hour hour crisis hotline for domestic abuse at Cherrie Oropeza PA-C Mar 23, 2018 1:19 pm
--- NOTE | 2018-03-23 13:39 | EKG ---
Date Performed: 03/22/2018 Time Performed: 22:38:00 PTAGE: 67 years EKG: SUPRAVENTRICULAR RHYTHM Otherwise probably normal. Unfortunately both EKGs have artifact an d I cannot accurately compare nor interpret baseline rhythm of this EKG. PREVIOUS TRACING : 11/26/2016 15.52 DOCTOR: Stefan Ortiz Interpretating Date/Time 03/23/2018 13:37:34
[2018-03-23] MEDS ORDERED: MAGNESIUM SULFATE 1 GM PREMIX 100 ML IV SCH (14:00)
--- NOTE | 2018-03-23 14:33 | PD.CONS ---
HPI Service Urology Consult Requested By Dr Craven Reason for Consult Hematuria, N/V Primary Care Physician Unknown Diagnosis: (1) Intractable nausea and vomiting ICD Code: R11.2 - Nausea with vomiting, unspecified (2) Dehydration ICD Code: E86.0 - Dehydration History of Present Illness 67y.o M s/p Cysto/Prostate biopsy yesterday under anesthesia, developed recurrent Nausea and vomiting post procedure and was sent to ER. He has coppola, urine is light red, normal post procedure. His labs and VS are stable, he feels better today vomiting improved Review of Systems Except as stated in HPI: all other systems reviewed are Neg Past Family Social History Past Medical History as per primary Past Surgical History as per primary Allergies: Coded Allergies: ciprofloxacin (Verified Allergy, Severe, Anaphylaxis, 03/22/18) fentanyl (Verified Allergy, Severe, Anaphylaxis, 03/22/18) tramadol (Unverified Allergy, Severe, Rash, 03/22/18) Family History n/a Social History as per primary note Physical Exam Vital Signs Date Time Temp Pulse Resp B/P (MAP) Pulse Ox O2 Delivery O2 Flow Rate FiO2 03/23/18 12:00 98.2 71 17 122/74 (90) 98 03/23/18 08:00 98.4 76 16 156/94 (114) 97 03/23/18 03:06 99.1 84 16 172/93 (119) 99 03/23/18 02:43 03/22/18 22:55 162/94 (116) 03/22/18 21:58 98 18 206/113 (144) 100 Room Air 03/22/18 19:24 99.0 128 18 187/102 (130) 99 Physical Exam GENERAL: This is a well-nourished, well-developed patient, in no apparent distress. HEAD: Atraumatic. Normocephalic. CARDIOVASCULAR: Regular rate and rhythm without murmurs, gallops, or rubs. RESPIRATORY: Clear to auscultation. Breath sounds equal bilaterally. No wheezes , rales, or rhonchi. GASTROINTESTINAL: Abdomen soft, non-tender, nondistended. GENITOURINARY:Coppola is in place MUSCULOSKELETAL: Extremities without clubbing, cyanosis, or edema. NEUROLOGICAL: Awake and alert. Lab results reviewed: Yes Laboratory Tests Test 03/22/18 22:31 03/22/18 23:02 03/23/18 11:10 White Blood Count 8.6 4.5 Red Blood Count 3.49 3.07 Hemoglobin 10.2 9.0 Hematocrit 30.7 26.8 Mean Corpuscular Volume 88.0 87.4 Mean Corpuscular Hemoglobin 29.3 29.2 Mean Corpuscular Hemoglobin Concent 33.2 33.4 Red Cell Distribution Width 13.9 14.5 Platelet Count 230 190 Mean Platelet Volume 7.0 7.4 Neutrophils (%) (Auto) 88.9 73.9 Lymphocytes (%) (Auto) 2.0 11.1 Monocytes (%) (Auto) 9.0 14.7 Eosinophils (%) (Auto) 0.0 0.1 Basophils (%) (Auto) 0.1 0.2 Neutrophils # (Auto) 7.7 3.4 Lymphocytes # (Auto) 0.2 0.5 Monocytes # (Auto) 0.8 0.7 Eosinophils # (Auto) 0.0 0.0 Basophils # (Auto) 0.0 0.0 CBC Comment DIFF FINAL DIFF FINAL Differential Comment Blood Urea Nitrogen 25 21 Creatinine 1.82 1.58 Random Glucose 198 161 Calcium Level 8.7 8.0 Magnesium Level 1.3 1.6 Sodium Level 132 134 Potassium Level 5.3 4.4 Chloride Level 96 101 Carbon Dioxide Level 17.5 23.7 Anion Gap 19 9 Estimat Glomerular Filtration Rate 38 44 Urine Color RED Urine Turbidity CLOUDY Urine pH 5.0 Urine Specific [place] 1.017 Urine Protein >=500 Urine Glucose (UA) 50 Urine Ketones TRACE Urine Occult Blood LARGE Urine Nitrite NEG Urine Bilirubin NEG Urine Urobilinogen LESS THAN 2 Urine Leukocyte Esterase NEG Urine RBC Urine WBC Urine Bacteria RARE Microscopic Urinalysis Comment CULTURE INDICATED Date/Time Source Procedure Growth Status 03/22/18 23:02 Urine Clean Catch Urine Culture - Preliminary RESULTS PENDING Resulted Result Diagram: 03/23/18 1110 03/23/18 1110 Assessment and Plan Assessment and Plan From urology stand point pt is stable and can be d/c home His coppola catheter can be removed He needs to continue his meds, drink more fluids F/u in our office in 1-2weeks Discussed Condition With Dr Isidoro LOPEZ attending and 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
[2018-03-23 16:00] VITALS: BP 136/81; PULSE 85; RESP 17; TEMP 99; O2SAT 98
== END 2018-03-23 19:18 | disposition home or self-care (01) ==
LOC: NEPD 18:56 → NEDA 03-23 00:11 → NEPHCDU 03-23 02:54
PROVIDERS: ADMIT Hospitalist; ATTEND Hospitalist
DX: E86.0 Dehydration (principal); N17.9 Acute kidney failure, unspecified; I12.9 Hypertensive chronic kidney disease with stage 1 through stage 4 chronic kidney disease, or unspecified chronic kidney disease; N18.3 Chronic kidney disease, stage 3 (moderate); E87.1 Hypo-osmolality and hyponatremia; E83.42 Hypomagnesemia; E87.2 Acidosis; E87.5 Hyperkalemia; N40.0 Benign prostatic hyperplasia without lower urinary tract symptoms; R31.0 Gross hematuria; Z72.0 Tobacco use; Z80.1 Family history of malignant neoplasm of trachea, bronchus and lung
CPT/HCPCS: 80048; 81001; 83735; 85025; 87086; 93005; 96361; 96365; 96368; 96375; 96376; 99285; G0378; J2270; J2765; J3475; J7030